=== PATIENT | male | born 1975 | race Two or more races ===

== ENCOUNTER 2017-02-09 15:18 | Emergency (ER) | payer OTHER ==
[~2017-02-09] VITALS: Ht 172.7 cm; Wt 78.0 kg
[2017-02-09 15:51] LABS: BASO % 0 % (0-3); EOS # 0.1 x10^3/uL (0.0-0.7); EOS % 3 % (0-3); HEMATOCRIT 45.9 % (39.0-53.0); HEMOGLOBIN 15.8 g/dL (13.0-17.5); LYMPH # 2.6 x10^3/uL (1.0-4.8); LYMPH % 47 % (24-48); MEAN CORPUSCULAR HEMOGLOBIN 30 pg (25-35); MEAN CORPUSCULAR HGB CONC 35 g/dL (31-37); MEAN CORPUSCULAR VOLUME 87 fL (79-100); MONO # 0.3 x10^3/uL (0.0-1.1); MONO % 6 % (0-9); NEUT # 2.5 x10^3uL (1.8-7.7); NEUT % 44 % (31-73); PLATELET COUNT 168 x10^3/uL (140-400); RED BLOOD COUNT 5.29 x10^6/uL (4.30-5.70); RED CELL DISTRIBUTION WIDTH 12.7 % (11.5-14.5); WHITE BLOOD COUNT 5.6 x10^3/uL (4.0-11.0)
[2017-02-09 16:00] LABS: ALBUMIN 3.8 g/dL (3.4-5.0); CALCIUM 8.9 mg/dL (8.5-10.1); CREATININE 0.9 mg/dL (0.7-1.3); GFR 93.9; POTASSIUM 3.9 mmol/L (3.5-5.1); TOTAL BILIRUBIN 0.7 mg/dL (0.2-1.0); TOTAL PROTEIN 7.8 g/dL (6.4-8.2)
[2017-02-09] MEDS ORDERED: IV NORMAL SALINE 1,000ML 1,000 ML IV ONE (16:00)
[2017-02-09] MEDS ORDERED: ONDANSETRON PF 4 MG/2 ML VIAL. IV ONE ×2 (16:00→17:15)
[2017-02-09] MEDS ORDERED: HYDROmorphone PF 1 MG/ML DISP.SYRIN IV ONE (16:00)
--- NOTE | 2017-02-09 16:42 | RAD ---
Ultrasound of the right upper quadrant of the abdomen 02/09/2017 Clinical history: Abdominal pain. Technique: A real-time ultrasound examination of the right upper quadrant of the abdomen was performed. Multiple images were obtained. Findings: The gallbladder is contracted. Echogenic gallstones are seen within the gallbladder. The gallbladder wall thickness is within normal limits. No pericholecystic fluid is seen. The common bile duct measures 4 mm in diameter which is within normal limits. The liver is normal in size measuring 15 cm in length. No focal abnormality of the liver is noted. The right kidney is within normal limits. The pancreas is not well visualized due to overlying bowel gas. Impression: Cholelithiasis.
[2017-02-09] MEDS ORDERED: SUCR1TAB35 PO (17:27)
--- NOTE | 2017-02-09 17:27 | PHYS DOC ---
Past History Past Medical History: No Pertinent History Past Surgical History: No Surgical History Alcohol Use: None Drug Use: None Adult General Chief Complaint Chief Complaint: ABDOMINAL PAIN HPI HPI Patient is a 41 year old M who presents with sudden onset of upper middle and right abdominal pain about 1 hour after eating pizza. His pain was associated with nausea and no vomiting. His pain was worse with palpation and position. She has no alleviating factors. He has had similar pain several years ago but has not since recurred. He takes no medications and has had no abdominal surgeries. He has no other risk factors. Review of Systems Review of Systems Constitutional: Negative except history of present illness Eyes: Denies change in visual acuity, redness, or eye pain [] HENT: Denies nasal congestion or sore throat [] Respiratory: Denies cough or shortness of breath [] Cardiovascular: No additional information not addressed in HPI [] GI: Negative except history of present illness : Denies dysuria or hematuria [] Musculoskeletal: Denies back pain or joint pain [] Integument: Denies rash or skin lesions [] Neurologic: Denies headache, focal weakness or sensory changes [] Endocrine: Denies polyuria or polydipsia [] Family History Family History Noncontributory Current Medications Current Medications No home medications Current Medications Medications (Trade) Dose Ordered Sig/Mandy Start Time Stop Time Status Last Admin Dose Admin Hydromorphone HCl (Dilaudid) 1 mg 1X ONCE 02/09/17 16:00 02/09/17 16:01 DC 02/09/17 16:00 1 MG Ondansetron HCl (Zofran) 4 mg ONCE ONCE 02/09/17 17:15 02/09/17 17:16 DC Sodium Chloride 1,000 ml @ 1,000 mls/hr 1X ONCE 02/09/17 16:00 02/09/17 16:59 DC 02/09/17 16:38 1,000 MLS/HR Allergies Allergies Allergies Coded Allergies Type Severity Reaction Last Updated Verified No Known Drug Allergies 02/09/17 No Physical Exam Physical Exam Constitutional: Well developed, well nourished, no acute distress, non-toxic appearance. [] HENT: Normocephalic, atraumatic, bilateral external ears normal, oropharynx moist, no oral exudates, nose normal. [] Eyes: PERRLA, EOMI, conjunctiva normal, no discharge. [] Neck: Normal range of motion, no tenderness, supple, no stridor. [] Cardiovascular:Heart rate regular rhythm, no murmur [] Lungs & Thorax: Bilateral breath sounds clear to auscultation [] Abdomen: Bowel sounds normal, soft, mild epigastric and right upper quadrant tenderness Skin: Warm, dry, no erythema, no rash. [] Back: No tenderness, no CVA tenderness. [] Extremities: No tenderness, no cyanosis, no clubbing, ROM intact, no edema. [] Neurologic: Alert and oriented X 3, normal motor function, normal sensory function, no focal deficits noted. [] Psychologic: Affect normal, judgement normal, mood normal. [] Current Patient Data Vital Signs Vital Signs Date Time Temp Pulse Resp B/P (MAP) Pulse Ox O2 Delivery O2 Flow Rate FiO2 02/09/17 16:42 98.2 50 16 120/62 (81) 99 Room Air Lab Results Laboratory Tests Test 02/09/17 15:37 White Blood Count 5.6 x10^3/uL (4.0-11.0) Red Blood Count 5.29 x10^6/uL (4.30-5.70) Hemoglobin 15.8 g/dL (13.0-17.5) Hematocrit 45.9 % (39.0-53.0) Mean Corpuscular Volume 87 fL (79-100) Mean Corpuscular Hemoglobin 30 pg (25-35) Mean Corpuscular Hemoglobin Concent 35 g/dL (31-37) Red Cell Distribution Width 12.7 % (11.5-14.5) Platelet Count 168 x10^3/uL (140-400) Neutrophils (%) (Auto) 44 % (31-73) Lymphocytes (%) (Auto) 47 % (24-48) Monocytes (%) (Auto) 6 % (0-9) Eosinophils (%) (Auto) 3 % (0-3) Basophils (%) (Auto) 0 % (0-3) Neutrophils # (Auto) 2.5 x10^3uL (1.8-7.7) Lymphocytes # (Auto) 2.6 x10^3/uL (1.0-4.8) Monocytes # (Auto) 0.3 x10^3/uL (0.0-1.1) Eosinophils # (Auto) 0.1 x10^3/uL (0.0-0.7) Basophils # (Auto) 0.0 x10^3/uL (0.0-0.2) Sodium Level 140 mmol/L (136-145) Potassium Level 3.9 mmol/L (3.5-5.1) Chloride Level 104 mmol/L (98-107) Carbon Dioxide Level 31 mmol/L (21-32) Anion Gap 5 (6-14) L Blood Urea Nitrogen 10 mg/dL (8-26) Creatinine 0.9 mg/dL (0.7-1.3) Estimated GFR (Cockcroft-Gault) 93.9 BUN/Creatinine Ratio 11 (6-20) Glucose Level 132 mg/dL (70-99) H Calcium Level 8.9 mg/dL (8.5-10.1) Total Bilirubin 0.7 mg/dL (0.2-1.0) Aspartate Amino Transferase (AST) 45 U/L (15-37) H Alanine Aminotransferase (ALT) 72 U/L (16-63) H Alkaline Phosphatase 81 U/L (46-116) Total Protein 7.8 g/dL (6.4-8.2) Albumin 3.8 g/dL (3.4-5.0) Albumin/Globulin Ratio 1.0 (1.0-1.7) Lipase 112 U/L (73-393) Radiology/Procedures Radiology/Procedures Abdominal ultrasound Impressions: Uncomplicated gallstones Course & Med Decision Making Course & Med Decision Making Pertinent Labs and Imaging studies reviewed. (See chart for details) Dragon Disclaimer Dragon Disclaimer This chart was dictated in whole or in part using Voice Recognition software in a busy, high-work load, and often noisy Emergency Department environment. It may contain unintended and wholly unrecognized errors or omissions. Departure Departure: Impression: Primary Impression: Gastritis Disposition: 01 HOME, SELF-CARE Condition: STABLE Referrals: ALIZE WARD DO (PCP) Patient Instructions: Gastritis, Adult Additional Instructions: Simba was seen in the ED for abdominal pain. No emergency medical condition was found on history or physical exam. He did have normal labs and imaging with the exception of gallstones. He was given IV fluids and medications with good improvement in symptoms. He was given a prescription for Carafate to be taken prior to meals. He was advised to follow-up with his primary care doctor in the next 1-2 weeks for further management which may include upper endoscopy. He was advised to return to the emergency room if he develops now worsening symptoms Scripts Sucralfate (CARAFATE) 1 Gm Tablet 1 TAB PO QID for 14 Days, #56 TAB 1 Refill Prov: PAT WAITE MD 02/09/17 Problem Qualifiers Primary Impression: Gastritis Gastritis type: unspecified gastritis Chronicity: acute Gastritis bleeding : without bleeding Qualified Codes: K29.00 - Acute gastritis without bleeding PAT WAITE MD Feb 09, 2017 17:27
[2017-02-09 17:44] VITALS: BP 101/57
== END 2017-02-09 17:46 | disposition home or self-care (01) ==
LOC: ER 15:18
DX: K29.00 Acute gastritis without bleeding (principal); K80.20 Calculus of gallbladder without cholecystitis without obstruction
CPT/HCPCS: 36415; 76705; 80053; 83690; 85025; 96361; 96374; 96375; 99285; J1170; J2405; J7030